=== PATIENT | female | born 1965 | race Two or more races ===

== ENCOUNTER 2017-04-20 19:12 | Emergency (ER) | payer SELFPAY ==
[~2017-04-20] VITALS: Ht 162.6 cm; Wt 78.0 kg
[2017-04-20 19:16] VITALS: BP 138/82
[2017-04-20] MEDS ORDERED: HYDROcodone/APAP 5/325 TABLET ONE (20:51)
[2017-04-20] MEDS ORDERED: HYDROcodone/APAP 5/325 TABLET PO ONE (21:00)
== END 2017-04-20 22:09 | disposition home or self-care (01) ==
LOC: ED 22:03
DX: S82.445A Nondisplaced spiral fracture of shaft of left fibula, initial encounter for closed fracture (principal); X50.1XXA Overexertion from prolonged static or awkward postures, initial encounter; Y93.01 Activity, walking, marching and hiking; Y92.828 Other wilderness area as the place of occurrence of the external cause; Y99.8 Other external cause status
CPT/HCPCS: 29515; 99284